=== PATIENT | female | born 1980 | race Caucasian/White ===

== ENCOUNTER → 2018-12-17 | Outpatient (CLI) | payer OTHER | LOC: RAD 10:32 | DX: S52.122A Displaced fracture of head of left radius, initial encounter for closed fracture (principal) ==

== ENCOUNTER → 2019-10-25 | Outpatient (CLI) | payer OTHER | LOC: LAB 12:30 | DX: Z20.828 Contact with and (suspected) exposure to other viral communicable diseases (principal) ==

== ENCOUNTER → 2020-05-19 | Outpatient (CLI) | payer OTHER ==
[2020-05-19 08:53] LABS: POTASSIUM 3.6 mmol/L (3.5-5.1)
[2020-05-19 08:55] LABS: CALCIUM 9.3 mg/dL (8.3-10.5)
== END ==
LOC: LAB 06:47
PROVIDERS: Internal Medicine
DX: I10 Essential (primary) hypertension (principal)

== ENCOUNTER → 2020-07-12 | Outpatient (REF) | LOC: LAB 16:36 | DX: Z20.822 Contact with and (suspected) exposure to COVID-19 (principal) ==

== ENCOUNTER → 2020-10-13 | Outpatient (REF) | LOC: LAB 15:07 | DX: Z20.822 Contact with and (suspected) exposure to COVID-19 (principal) ==

== ENCOUNTER → 2021-06-14 | Outpatient (CLI) | payer OTHER | LOC: MAMMO 07:15 | DX: Z12.31 Encounter for screening mammogram for malignant neoplasm of breast (principal) ==